=== PATIENT | male | born 1965 | race Caucasian/White ===

== ENCOUNTER 2017-10-10 00:10 | Emergency (ER) | payer OTHER ==
[~2017-10-10] VITALS: Ht 188 cm; Wt 110.0 kg
[2017-10-10] MEDS ORDERED: IOHEXOL 350 MG/ML 10 ML VIAL (for RAD DIAG) IVCONTRAST ONE (00:11)
[2017-10-10 00:13] VITALS: BP 168/89; PULSE 70; RESP 20; TEMP 98.2; O2SAT 97
[2017-10-10 00:20] VITALS: O2SAT 96
[2017-10-10 00:29] VITALS: BP 156/58; PULSE 63; RESP 18; O2SAT 98
[2017-10-10] MEDS ORDERED: SODIUM CHLORIDE 0.9% FLUSH 10 ML FLUSH IVF PRN (00:30)
[2017-10-10] MEDS ORDERED: AMLO10TA2 PO (00:31)
[2017-10-10] MEDS ORDERED: PHEN37.54 PO (00:31)
[2017-10-10] MEDS ORDERED: LOSA25TA PO (00:31)
[2017-10-10 00:37] LABS: AUTOMATED NEUTROPHIL # 2.2 TH/MM3 (1.8-7.7); BASOPHIL # 0.1 TH/MM3 (0-0.2); BASOPHIL % 0.9 % (0.0-2.0); EOSINOPHIL # 0.2 TH/MM3 (0-0.4); EOSINOPHIL % 2.5 % (0.0-4.0); HEMATOCRIT 44.3 % (39.0-51.0); HEMOGLOBIN 15.8 GM/DL (13.0-17.0); LYMPH % 58.6 % (9.0-44.0); LYMPHOCYTE # 4.1 TH/MM3 (1.0-4.8); MEAN CELL VOLUME 82.8 FL (80.0-100.0); MEAN CORPUSCULAR HEMOGLOBIN 29.6 PG (27.0-34.0); MEAN CORPUSCULAR HGB CONC 35.7 % (32.0-36.0); MEAN PLATELET VOLUME 7.3 FL (7.0-11.0); MONO % 6.3 % (0.0-8.0); MONOCYTE # 0.4 TH/MM3 (0-0.9); NEUT % 31.7 % (16.0-70.0); PLATELET COUNT 226 TH/MM3 (150-450); RED BLOOD COUNT 5.35 MIL/MM3 (4.50-5.90); RED CELL DISTRIBUTION WIDTH 13.8 % (11.6-17.2)
[2017-10-10] MEDS ORDERED: ASPI81CH6 CHEW (00:37)
[2017-10-10] MEDS ORDERED: VITA1000 PO (00:37)
[2017-10-10] MEDS ORDERED: REDCAP2 (00:44)
[2017-10-10] MEDS ORDERED: COQ-30CA2 (00:44)
[2017-10-10] MEDS ORDERED: NIAC500T5 PO (00:44)
--- NOTE | 2017-10-10 00:47 | PD ---
HPI Chief Complaint: Respiratory Symptoms Time Seen by Provider: 00:18 Travel History International Travel<30 days: No Contact w/Intl Traveler<30days: No Traveled to known affect area: No History of Present Illness HPI The patient is a 52 year old male who presents to the [facility] emergency department with a history of intermittent headache since . The patient reports that he used to have severe headaches up until he was diagnosed with hypertension and his blood pressure was better controlled, 8-10 years ago. The patient reports that he did undergo an extensive workup at that time including imaging of his brain which was unremarkable. He reports that this evening he again began to have a headache. He reports that he has sleep apnea and uses CPAP mask per usual when he went to lie down, however with the CPAP mask on the headache was getting worse. He also felt like he could not breathe. The shortness of breath seem to be getting worse causing him to hyperventilate. The patient reports that he then began to have numbness and tingling to his arms and legs. He reports that when he stood up he felt lightheaded. He denies having any vertigo. He reports that he has had worse headaches in the past. He reports that the headache started over his forehead and progressed over his entire head and neck. He reports that the headache has improved since being in the emergency department. He reports that it basically has resolved along with all of the other symptoms. He denies having any cough associated with this. He reports that he has had some nasal rhinorrhea with eating occasionally. He denies having any known recent fevers. He reports that he has noticed over the last few days his blood pressure has been increased more than typical for him. The patient reports that he is on a cholesterol medication and amlodipine. However on further questioning the patient reports that he is taking amlodipine and losartan. The patient did not realize that the losartan was for his blood pressure. He reports that recently he did travel to [facility] and developed lower extremity edema at the travel. He talked to his primary care physician and was told that he could half one of his blood pressure medications. He reports that he actually forgot to take it a couple of days which could be contributing to his blood pressure being elevated. He denies having any weakness of his extremities. He denies having any nausea, vomiting, or diarrhea. He reports that when he noticed that his blood pressure was elevated in the 150s over 1 teens with the symptoms he took his blood pressure medication immediately at that time. Otherwise on review of systems, he denies having any chest pain, abdominal pain, urinary symptoms, or neurologic symptoms. FORMERLY [facility], [facility] Past Medical History Narrative Medical The patient's past medical history is significant for hypertension, hyperlipidemia, and sleep apnea High Cholesterol: Yes Diminished Hearing: No Hypertension: Yes Sleep Apnea: Yes (CPAP AT HOME) ?: Not Past Surgical History Narrative Surgical The patient's past surgical history is reportedly none. Surgical History: No Previous Surgery Social History Alcohol Use: Yes (RARE) Tobacco Use: No Substance Use: No Allergies-Medications (Allergen,Severity, Reaction): Coded Allergies: Penicillins (Verified Allergy, Intermediate, RASH, 10/10/17) Reported Meds & Prescriptions Reported Meds & Active Scripts Active Reported Coq-10 (Coenzyme Q10 (Ubidecarenone)) 30 Mg Cap Red Yeast Rice (Red Yeast Rice Extract) 600 Mg Cap Niacin 500 Mg Tab 1,000 Mg PO DAILY Vitamin D-1000 (Cholecalciferol) 1,000 Unit Tab 1,000 Units PO DAILY Aspirin Low Dose (Aspirin) 81 Mg Chew 81 Mg CHEW DAILY Phentermine (Phentermine HCl) 37.5 Mg Cap 37.5 Mg PO DAILY Losartan (Losartan Potassium) 25 Mg Tab 25 Mg PO DAILY Amlodipine (Amlodipine Besylate) 10 Mg Tab 10 Mg PO DAILY Review of Systems Except as stated in HPI: all other systems reviewed are Neg General / Constitutional: No: Fever Eyes: No: Visual changes HENT: Positive: Headaches, Lightheadedness, Rhinorrhea, Neck Pain, No: Congestion, Neck Stiffness Cardiovascular: No: Chest Pain or Discomfort Respiratory: Positive: Shortness of Breath Gastrointestinal: No: Nausea, Vomiting, Diarrhea, Abdominal Pain Genitourinary: No: Dysuria Musculoskeletal: No: Pain Skin: No Rash Neurologic: Positive: Dizziness, Headache, No: Weakness, Focal Abnormalities, Change in Mentation, Slurred Speech, Sensory Disturbance Psychiatric: No: Depression Endocrine: No: Polydipsia Hematologic/Lymphatic: No: Easy Bruising Physical Exam Narrative General: The patient is a well-developed well-nourished male in no acute distress. Head and Neck exam: Head is normocephalic atraumatic. Eyes: EOMI, pupils are equal round and reactive to light. Nose: Midline septum with pink mucous membranes Mouth: Dentition unremarkable. Moist mucus membranes. Posterior oropharynx is not erythematous. No tonsillar hypertrophy. Uvula midline. Airway patent. Neck: No palpable lymphadenopathy. No nuchal rigidity. No thyromegaly. Cardiovascular: Regular rate and rhythm without murmurs, gallops, or rubs. No pulse deficit to the extremities on simultaneous auscultation and palpation of his radial artery. Lungs: Clear to auscultation bilaterally. No wheezes, rhonchi, or rales. Abdomen: Soft, without tenderness to palpation in all 4 quadrants of the abdomen. No guarding, rebound, or rigidity. Normal bowel sounds are audible. No tenderness on palpation of McBurney's point. Negative Rivera sign. Extremities: No clubbing, cyanosis, or edema. 2+ pulses in all 4 extremities. No calf tenderness on palpation. Back: No spinous process tenderness to palpation. No costovertebral angle tenderness to palpation. Neurologic Exam: Cranial nerves 2-12 were intact on exam. Strength is 5/5 in all 4 extremities. No sensory deficits noted. Skin Exam: No rash noted. Intact skin that is warm and dry. Data Data Last Documented VS Vital Signs Date Time Temp Pulse Resp B/P (MAP) Pulse Ox O2 Delivery O2 Flow Rate FiO2 10/10/17 02:22 67 17 133/85 (101) 96 Room Air 10/10/17 00:29 2.00 10/10/17 00:13 98.2 Orders Orders Electrocardiogram (10/10/17 ) Electrocardiogram (10/10/17 00:18) B-Type Natriuretic Peptide (10/10/17 00:18) Ckmb (Isoenzyme) Profile (10/10/17 00:18) Complete Blood Count With Diff (10/10/17 00:18) Comprehensive Metabolic Panel (10/10/17 00:18) Magnesium (Mg) (10/10/17 00:18) Prothrombin Time / Inr (Pt) (10/10/17 00:18) Act Partial Throm Time (Ptt) (10/10/17 00:18) Troponin I (10/10/17 00:18) Lipase (10/10/17 00:18) Chest, Single Ap (10/10/17 00:18) Ecg Monitoring (10/10/17 00:18) Bilateral Bp Monitoring (10/10/17 00:18) Iv Access Insert/Monitor (10/10/17 00:18) Oximetry (10/10/17 00:18) Oxygen Administration (10/10/17 00:18) Sodium Chloride 0.9% Flush (Ns Flush) (10/10/17 00:30) CKMB (10/10/17 00:25) CKMB% (10/10/17 00:25) Ct Brain W/O Iv Contrast(Rout) (10/10/17 02:10) Ct Pulmonary Angiogram (10/10/17 02:10) Sodium Chlor 0.9% 1000 Ml Inj (Ns 1000 M (10/10/17 02:15) Iohexol 350 Inj (Omnipaque 350 Inj) (10/10/17 00:11) Labs Laboratory Tests Test 10/10/17 00:25 White Blood Count 7.0 TH/MM3 Red Blood Count 5.35 MIL/MM3 Hemoglobin 15.8 GM/DL Hematocrit 44.3 % Mean Corpuscular Volume 82.8 FL Mean Corpuscular Hemoglobin 29.6 PG Mean Corpuscular Hemoglobin Concent 35.7 % Red Cell Distribution Width 13.8 % Platelet Count 226 TH/MM3 Mean Platelet Volume 7.3 FL Neutrophils (%) (Auto) 31.7 % Lymphocytes (%) (Auto) 58.6 % Monocytes (%) (Auto) 6.3 % Eosinophils (%) (Auto) 2.5 % Basophils (%) (Auto) 0.9 % Neutrophils # (Auto) 2.2 TH/MM3 Lymphocytes # (Auto) 4.1 TH/MM3 Monocytes # (Auto) 0.4 TH/MM3 Eosinophils # (Auto) 0.2 TH/MM3 Basophils # (Auto) 0.1 TH/MM3 CBC Comment AUTO DIFF Differential Comment AUTO DIFF CONFIRMED Platelet Estimate NORMAL Platelet Morphology Comment NORMAL Red Cell Morphology Comment NORMAL Prothrombin Time 10.0 SEC Prothromb Time International Ratio 1.0 RATIO Activated Partial Thromboplast Time 23.2 SEC Blood Urea Nitrogen 22 MG/DL Creatinine 1.19 MG/DL Random Glucose 115 MG/DL Total Protein 8.1 GM/DL Albumin 4.1 GM/DL Calcium Level 9.1 MG/DL Magnesium Level 2.3 MG/DL Alkaline Phosphatase 59 U/L Aspartate Amino Transf (AST/SGOT) 24 U/L Alanine Aminotransferase (ALT/SGPT) 51 U/L Total Bilirubin 0.5 MG/DL Sodium Level 142 MEQ/L Potassium Level 3.7 MEQ/L Chloride Level 105 MEQ/L Carbon Dioxide Level 25.7 MEQ/L Anion Gap 11 MEQ/L Estimat Glomerular Filtration Rate 64 ML/MIN Total Creatine Kinase 162 U/L Creatine Kinase MB 1.0 NG/ML Troponin I LESS THAN 0.02 NG/ML B-Type Natriuretic Peptide 4 PG/ML Lipase 195 U/L MDM Medical Decision Making Medical Screen Exam Complete: Yes Emergency Medical Condition: Yes Medical Record Reviewed: Yes Interpretation(s) Last Impressions Head CT 10/10/17209 Signed Impressions: Service Date/Time: Tuesday, October 10, 2017 03:25 - CONCLUSION: Normal examination for a patient of this age. Sohan Eubanks MD CT Angiography 10/10/17209 Signed Impressions: Service Date/Time: Tuesday, October 10, 2017 03:30 - CONCLUSION: 1. Negative for pulmonary embolus. No acute findings. Sohan Eubanks MD Chest X-Ray 10/10/17 0018 Signed Impressions: Service Date/Time: Tuesday, October 10, 2017 00:33 - CONCLUSION: No acute disease. Sohan Eubanks MD Differential Diagnosis intracranial hemorrhage, versus acute coronary syndrome, versus pulmonary embolism, versus panic attack Narrative Course During the course of the patient's emergency department visit, the patient's history, examination, and differential diagnosis were reviewed with the patient. The patient was placed on a assembler unit with oximetry and frequent blood pressure monitoring. The patient had IV access obtained and blood work sent for analysis. The patient had an EKG done on arrival that shows a sinus rhythm heart rate of 72, QRS duration 108 ms, QTC [address] segment elevation. The patient was initially provided normal saline 1 L IV fluid bolus The patient's laboratory studies were reviewed and remarkable for a white count of 7, hemoglobin 15.8, platelets 226 with 58.6 lymphocytes, CMP is remarkable for BUN of 22, glucose 115, cardiac enzymes within normal limits, BNP is 4, lipase 195. PT PTT within normal limits Radiology studies were reviewed and remarkable for a chest x-ray that shows no acute cardiopulmonary disease, CT scan of the brain shows no acute abnormality. CTA to rule out PE shows no acute findings, no evidence of pulmonary embolism. The patient was offered admission to the chest pain center for rule out serial cardiac enzyme protocol followed by stress testing, however the patient reports that he feels back to baseline. He prefers to follow-up as an outpatient with his primary care physician. He reports that he last had a stress test done approximately 5 years ago that was unremarkable. The patient is encouraged to restart both of his blood pressure medications as previously prescribed. The patient is resting comfortably and feels better, is alert and in no distress. The patient's results and examination findings were discussed with the patient. The repeat examination is unremarkable and benign. The history, exam, diagnostic testing, and current condition do not suggest any significant pathology to warrant further testing, continued ED treatment, admission, or surgical evaluation at this point. The vital signs have been stable. The patient does not have uncontrollable pain, intractable vomiting, or other significant symptoms. The patient's condition is stable and appropriate for discharge. The patient will pursue further outpatient evaluation with a primary care physician or other designated or consulting physician as indicated in the discharge instructions. The patient expressed understanding and was agreeable with this plan. Diagnosis Primary Impression: Hypertension Qualified Codes: I10 - Essential (primary) hypertension Additional Impressions: Headache Qualified Codes: R51 - Headache Shortness of breath Referrals: Primary Care Physician 2 days Patient Instructions: General Headache (ED), General Instructions, Hypertension (ED), Shortness of Breath (ED) Additional Instructions: Continue taking amlodipine and losartan as previously prescribed. Disposition: 01 DISCHARGE HOME Condition: Stable Erin Chiang MD Oct 10, 2017 00:47
[2017-10-10 01:08] LABS: ALKALINE PHOSPHATASE 59 U/L (45-117); TOTAL BILIRUBIN ADULT 0.5 MG/DL (0.2-1.0); TOTAL PROTEIN 8.1 GM/DL (6.4-8.2); TROPONIN I LESS THAN 0.02 NG/ML (0.02-0.05)
--- NOTE | 2017-10-10 01:08 | RADRPT ---
EXAM DATE/TIME: 10/10/2017 00:33 [facility] COMPARISON: No previous studies available for comparison. INDICATIONS : Short of breath. MEDICAL HISTORY : None. SURGICAL HISTORY : None. ENCOUNTER: Initial ACUITY: 1 day PAIN SCORE: 0/10 LOCATION: Bilateral chest FINDINGS: A single view of the chest demonstrates the lungs to be symmetrically aerated without evidence of mas s, infiltrate or effusion. The cardiomediastinal contours are unremarkable. Osseous structures are intact. CONCLUSION: No acute disease. Sohan Eubanks MD on October 10, 2017 at 1:07 Board Certified Radiologist. This report was verified electronically.
[2017-10-10 01:15] LABS: ALBUMIN 4.1 GM/DL (3.4-5.0); ALT (GPT) 51 U/L (12-78); AST (GOT) 24 U/L (15-37); BICARBONATE 25.7 MEQ/L (21.0-32.0); BLOOD UREA NITROGEN 22 MG/DL (7-18); CALCIUM 9.1 MG/DL (8.5-10.1); CHLORIDE 105 MEQ/L (98-107); CREATININE 1.19 MG/DL (0.60-1.30); GLOMERULAR FILTRATION RATE 64 ML/MIN (>89); GLUCOSE,RANDOM 115 MG/DL (74-106); MAGNESIUM 2.3 MG/DL (1.5-2.5); SODIUM (NA) 142 MEQ/L (136-145)
[2017-10-10] MEDS ORDERED: SODIUM CHLOR 0.9% 1000 ML INJ 1,000 ML IV ONE (02:15)
[2017-10-10 02:22] VITALS: BP 133/85; PULSE 67; RESP 17; O2SAT 96
--- NOTE | 2017-10-10 03:53 | RADRPT ---
EXAM DATE/TIME: 10/10/2017 03:25 [facility] COMPARISON: No previous studies available for comparison. INDICATIONS : Headaches. RADIATION DOSE: 58.81 CTDIvol (mGy) MEDICAL HISTORY : Hypertension. SURGICAL HISTORY : None. ENCOUNTER: Initial ACUITY: 1 day PAIN SCALE: 6/10 LOCATION: cranial TECHNIQUE: Multiple contiguous axial images were obtained of the head. Using automated exposure control and adj ustment of the mA and/or kV according to patient size, radiation dose was kept as low as reasonably a chievable to obtain optimal diagnostic quality images. DICOM format image data is available electro nically for review and comparison. FINDINGS: CEREBRUM: The ventricles are normal for age. No evidence of midline shift, mass lesion, hemorrhage or acute in farction. No extra-axial fluid collections are seen. POSTERIOR FOSSA: The cerebellum and brainstem are intact. The 4th ventricle is midline. The cerebellopontine angle i s unremarkable. EXTRACRANIAL: The visualized portion of the orbits is intact. SKULL: The calvaria is intact. No evidence of skull fracture. CONCLUSION: Normal examination for a patient of this age. Sohan Eubanks MD on October 10, 2017 at 3:51 Board Certified Radiologist. This report was verified electronically.
--- NOTE | 2017-10-10 03:58 | RADRPT ---
EXAM DATE/TIME: 10/10/2017 03:30 [facility] COMPARISON: No previous studies available for comparison. INDICATIONS : Chest pain. IV CONTRAST: 70 cc Omnipaque 350 (iohexol) IV RADIATION DOSE: 22.67 CTDIvol (mGy) MEDICAL HISTORY : Hypertension. SURGICAL HISTORY : None. ENCOUNTER: Initial ACUITY: 1 day PAIN SCALE: 7/10 LOCATION: chest TECHNIQUE: Volumetric scanning of the chest was performed using a pulmonary embolism protocol MIP images were re constructed. Using automated exposure control and adjustment of the mA and/or kV according to patien t size, radiation dose was kept as low as reasonably achievable to obtain optimal diagnostic quality images. DICOM format image data is available electronically for review and comparison. Follow-up recommendations for detected pulmonary nodules are based at a minimum on nodule size and pa tient risk factors according to Fleischner Society Guidelines. FINDINGS: PULMONARY ARTERIES: No filling defects are seen in the pulmonary arteries through the segmental level. LUNGS: There is no consolidation or pneumothorax . No concerning pulmonary nodule is visualized. PLEURAE: There is no pleural thickening or pleural effusion. MEDIASTINUM: There is good visualization of the great vessels of the middle mediastinum. No evidence of mediastin al or hilar adenopathy/mass. MUSCULOSKELETAL: Within normal limits for patient age. MISCELLANEOUS: The visualized upper abdominal organs demonstrate no acute abnormality. CONCLUSION: 1. Negative for pulmonary embolus. No acute findings. Sohan Eubanks MD on October 10, 2017 at 3:52 Board Certified Radiologist. This report was verified electronically.
[2017-10-10 04:29] VITALS: BP 143/81
--- NOTE | 2017-10-11 00:14 | EKG ---
Date Performed: 10/10/2017 Time Performed: 00:12:52 PTAGE: 52 years EKG: Sinus rhythm NONSPECIFIC T-WAVE ABNORMALITY BORDERLINE ECG NO PREVIOUS TRACING DOCTOR: Cesar Green Interpretating Date/Time 10/11/2017 00:13:28
== END 2017-10-10 04:35 | disposition home or self-care (01) ==
LOC: NEPC 00:10
DX: I10 Essential (primary) hypertension (principal); R51 Headache; R06.02 Shortness of breath; R94.31 Abnormal electrocardiogram [ECG] [EKG]; E78.00 Pure hypercholesterolemia, unspecified; E78.5 Hyperlipidemia, unspecified; Z88.0 Allergy status to penicillin; Z79.899 Other long term (current) drug therapy
CPT/HCPCS: 70450; 71045; 71275; 80053; 82550; 82552; 83690; 83735; 83880; 84484; 85025; 85610; 85730; 93005; 96360; 96361; 99285; J7030; Q9967